=== PATIENT | female | born 1985 | race Caucasian/White ===

== ENCOUNTER 2021-10-01 06:37 | Day surgery (SDC) | payer OTHER ==
[~2021-10-01 06:37] MED LIST: Lactated Ringers 1,000 ML IV SCH; cefOXitin 2 GM in Premix Bag 1 BAG IV ONE
[2021-10-01] MEDS ORDERED: Bupivacaine 0.5% 30 ML SDV ONE (07:13)
[2021-10-01] MEDS ORDERED: ceFAZolin 1 GM Vial ONE (07:13)
[2021-10-01] MEDS ORDERED: Scopolamine 1.5 MG Transdermal Patch ONE (07:14)
[2021-10-01] MEDS ORDERED: Ondansetron 4 MG/2 ML SDV IVPUSH PRN (07:23)
[2021-10-01] MEDS ORDERED: Albuterol 0.083% 2.5 MG/3 ML Neb Soln NEB PRN (07:23)
[2021-10-01] MEDS ORDERED: Naloxone 0.4 MG/ML SDV IVPUSH PRN (07:23)
[2021-10-01] MEDS ORDERED: Metoclopramide 10 MG/2 ML SDV IVPUSH PRN (07:23)
[2021-10-01] MEDS ORDERED: Morphine 2 MG/ML SYRINGE IVPUSH PRN ×2 (07:23→08:47)
[2021-10-01] MEDS ORDERED: HYDROmorphone 1 MG/ML Syringe IVPUSH PRN (07:23)
--- NOTE | 2021-10-01 07:26 | PCM.PREANE ---
Preanesthetic Assessment - Anesthesia/Transfusion/Family Hx Anesthesia History: Prior Anesthesia Without Reaction Transfusion History: No Prior Transfusion(s) - Review of Systems General: No Symptoms Pulmonary: No Symptoms Cardiovascular: No Symptoms Gastrointestinal: No Symptoms Neurological: No Symptoms Other: Reports: None - Physical Assessment NPO Status Date: 10/01/21 NPO Status Time: 00:00 Vital Signs: Last Vital Signs Temp 97.7 F 10/01/21 06:49 Pulse 78 10/01/21 06:49 Resp 14 10/01/21 06:49 BP 104/57 L 10/01/21 06:49 Pulse Ox 99 10/01/21 06:49 Height: 5 ft 4 in Weight: 133 lb ASA Class: 2 Mental Status: Alert & Oriented x3 Airway Class: Mallampati = 2 Dentition: Reports: Normal Dentition Thyro-Mental Finger Breadths: 3 Mouth Opening Finger Breadths: 3 ROM/Head Extension: Full Lungs: Clear to Auscultation, Normal Respiratory Effort Cardiovascular: Regular Rate, Regular Rhythm - Allergies Allergies/Adverse Reactions: Allergies Allergy/AdvReac Type Severity Reaction Status Date / Time copper Allergy itch/swelli Verified 09/27/21 08:31 ng - Anesthesia Plan Pre-Op Medication Ordered: Other (scopolamnine) - Acknowledgements Anesthesia Type Planned: General Anesthesia Pt an Appropriate Candidate for the Planned Anesthesia: Yes Alternatives and Risks of Anesthesia Discussed w Pt/Guardian: Yes Pt/Guardian Understands and Agrees with Anesthesia Plan: Yes PreAnesthesia Questionnaire HEENT History: Reports: Allergic Rhinitis, Other (See Below) Other HEENT History: wears glasses/contacts Cardiovascular History: Reports: Other (See Below) Other Cardiovascular History: HTN in the past, not since weight loss Respiratory History: Reports: None Gastrointestinal History: Reports: Chronic Constipation, GERD Genitourinary History: Reports: None Musculoskeletal History: Reports: None Neurological History: Reports: Migraines Psychiatric History: Reports: Anxiety, Depression, PTSD Endocrine/Metabolic History: Reports: None Hematologic History: Reports: None Immunologic History: Reports: None Oncologic (Cancer) History: Reports: None Dermatologic History: Reports: None - Past Surgical History Head Surgeries/Procedures: Reports: None HEENT Surgical History: Reports: None Cardiovascular Surgical History: Reports: None Respiratory Surgical History: Reports: None GI Surgical History: Reports: Bariatric Procedure Other GI Surgeries/Procedures: joan-en y gastric bypass Female Surgical History: Reports: None Endocrine Surgical History: Reports: None Neurological Surgical History: Reports: None Musculoskeletal Surgical History: Reports: Other (See Below) Other Musculoskeletal Surgeries/Procedures:: right wrist surgery for avascular necrosis Oncologic Surgical History: Reports: None Dermatological Surgical History: Reports: None - SUBSTANCE USE Tobacco Use Status *Q: Former Tobacco User Tobacco Use Within Last Twelve Months: No - HOME MEDS Home Medications: Home Meds Bacillus Coagulans [Probiotic] 1 tab PO DAILY 09/27/21 [History] Biotin 10 mg PO DAILY 09/27/21 [History] Calcium Carbonate [Calcium] 1,250 mg PO DAILY 09/27/21 [History] Cholecalciferol (Vitamin D3) [Vitamin D3] 500 units PO DAILY 09/27/21 [History] Docusate Sodium [Colace] 100 mg PO QID 09/27/21 [History] Ferrous Gluconate 324 mg PO DAILY 09/27/21 [History] Loratadine [Claritin] 1 tab PO DAILY 09/27/21 [History] Multivitamin 1 tab PO DAILY 09/27/21 [History] Omeprazole 20 mg PO DAILY 09/27/21 [History] buPROPion HCL [Bupropion Xl] 450 mg PO DAILY 09/27/21 [History] polyethylene glycoL 3350 [MiraLAX] 1 scoop PO DAILY 09/27/21 [History] - CURRENT (IN HOUSE) MEDS Current Meds: Current Medications Albuterol (Albuterol 0.083% 2.5 Mg/3 Ml Neb Soln) 2.5 mg NEB ONETIME PRN PRN Reason: Wheezing Droperidol (Droperidol 5 Mg/2 Ml Sdv) 0.625 mg IVPUSH ONETIME PRN PRN Reason: Nausea/Vomiting Fentanyl (Fentanyl 100 Mcg/2 Ml Sdv) 50 mcg IVPUSH Q5M PRN PRN Reason: Pain (mild 1-3) Hydromorphone HCl (Hydromorphone 1 Mg/Ml Syringe) 1 mg IVPUSH Q10M PRN PRN Reason: Pain (moderate 4-6) Lactated Ringer's (Ringers, Lactated) 1,000 mls @ 125 mls/hr IV ASDIRECTED [facility] Last Admin: 10/01/21 06:54 Dose: 125 mls/hr Documented by: Metoclopramide HCl (Metoclopramide 10 Mg/2 Ml Sdv) 10 mg IVPUSH ONETIME PRN PRN Reason: Nausea/Vomiting Morphine Sulfate (Morphine 4 Mg/Ml Vial) 2 mg IVPUSH Q10M PRN PRN Reason: Pain (severe 7-10) Naloxone HCl (Naloxone 0.4 Mg/Ml Sdv) 0.1 mg IVPUSH ASDIRECTED PRN PRN Reason: Respiratory Depression Ondansetron HCl (Ondansetron 4 Mg/2 Ml Sdv) 4 mg IVPUSH ONETIME PRN PRN Reason: Nausea/Vomiting Discontinued Medications Bupivacaine HCl (Bupivacaine 0.5% 30 Ml Sdv) Confirm Administered Dose 30 ml .ROUTE .STK-MED ONE Stop: 10/01/21 07:14 Cefazolin Sodium (Cefazolin 1 Gm Vial) Confirm Administered Dose 1 gm .ROUTE .STK-MED ONE Stop: 10/01/21 07:14 Cefoxitin Sodium 2 gm/ Premix 50 mls @ 100 mls/hr IV ONETIME ONE Stop: 10/01/21 06:29 Scopolamine (Scopolamine 1.5 Mg Transdermal Patch) Confirm Administered Dose 1.5 mg .ROUTE .STK-MED ONE Stop: 10/01/21 07:15
[2021-10-01] MEDS ORDERED: cefOXitin 1 GM Vial ONE ×2 (07:55)
[2021-10-01] MEDS ORDERED: propofoL 100 ML ONE ×2 (08:07→08:08)
[2021-10-01] MEDS ORDERED: Indocyanine Green 25 MG SDV ONE (08:16)
[2021-10-01] MEDS ORDERED: Acetaminophen/HYDROcodone 325-5 MG Tab PO PRN (08:47)
--- NOTE | 2021-10-01 08:55 | PCM.OPNOTE ---
- General Post-Op/Procedure Note Date of Surgery/Procedure: 10/01/21 Operative Procedure(s): Laparoscopic cholecystectomy Pre Op Diagnosis: Symptomatic cholelithiasis Post-Op Diagnosis: Same Anesthesia Technique: General ET Tube (ASA II) Primary Surgeon: Mukund Martínez Marketing Project Lead: Cinthia Vidal Fluid Replacement, Intraop: 1,300 Output, Urine Amount: 50 EBL in mLs: 10 Condition: Good Free Text/Narrative:: DICTATION [id number] CPT CODE 44440
--- NOTE | 2021-10-01 08:58 | PCM48HPAN ---
Post Anesthesia Note - EVALUATION WITHIN 48HRS OF ANESTHETIC Vital Signs in Normal Range: Yes Patient Participated in Evaluation: Yes Respiratory Function Stable: Yes Airway Patent: Yes Cardiovascular Function Stable: Yes Hydration Status Stable: Yes Pain Control Satisfactory: Yes Nausea and Vomiting Control Satisfactory: Yes Mental Status Recovered: Yes Vital Signs: Last Vital Signs Temp 97.7 F 10/01/21 06:49 Pulse 78 10/01/21 06:49 Resp 14 10/01/21 06:49 BP 104/57 L 10/01/21 06:49 Pulse Ox 99 10/01/21 06:49
--- NOTE | 2021-10-01 08:58 | PCM.POSTAN ---
POST ANESTHESIA ASSESSMENT - MENTAL STATUS Mental Status: Alert, Oriented - VITAL SIGNS Vital Signs: Last Vital Signs Temp 97.7 F 10/01/21 06:49 Pulse 78 10/01/21 06:49 Resp 14 10/01/21 06:49 BP 104/57 L 10/01/21 06:49 Pulse Ox 99 10/01/21 06:49 - RESPIRATORY Respiratory Status: Respiratory Rate WNL, Airway Patent, O2 Saturation Stable - CARDIOVASCULAR CV Status: Pulse Rate WNL, Blood Pressure Stable - GASTROINTESTINAL GI Status: No Symptoms - POST OP HYDRATION Hydration Status: Adequate & Stable
[2021-10-01] MEDS ORDERED: Lactated Ringers 1,000 ML IV SCH (09:00)
[2021-10-01] MEDS: fentaNYL 100 MCG/2 ML SDV IVPUSH PRN ×2 (09:06→09:14)
--- NOTE | 2021-10-01 09:12 | OR ---
SURGEON: Mukund Martínez M.D. DATE OF PROCEDURE: 10/01/2021 OPERATION PERFORMED: Laparoscopic cholecystectomy. PRIMARY SURGEON: Mukund Martínez M.D. CATTLE BRANDER: [employer] Product Consultant: BRODERICK Jack first assist. ANESTHESIA: General endotracheal. ASA CLASSIFICATION: II. PREOPERATIVE DIAGNOSIS: Symptomatic cholelithiasis. POSTOPERATIVE DIAGNOSIS: Symptomatic cholelithiasis. ESTIMATED BLOOD LOSS: 10 mL. INTRAOPERATIVE FLUID REPLACEMENT: 1300 mL of crystalloid. INTRAOPERATIVE URINE OUTPUT: 50 mL. DESCRIPTION OF PROCEDURE: The patient was taken to the operating room and placed on the operating table in the supine position. Time-out was called for appropriate identification of the patient and procedure. Thigh-high TEDs and sequential compression boots were placed. Following satisfactory attainment of general endotracheal anesthesia, a Schroeder catheter was placed in the patient's urinary bladder. The abdomen was prepped with DuraPrep solution and sterile drapes were applied. The skin below the umbilicus was infiltrated with 0.5% Marcaine solution. Skin incision was made and hemostasis obtained with the use of electrocautery. The Veress needle was introduced into the peritoneal cavity. Saline drop test was positive. Carbon dioxide pneumoperitoneum was established with the release set at 13 mmHg. Under camera vision, 5 mm infraumbilical camera and port were placed. Appropriate sites had been marked on the abdominal wall for placement of our subxiphoid, midclavicular, and anterior axillary ports. With the patient positioned feet down and rolled to the left under camera vision, the 12 mm subxiphoid port was placed first, infiltrating the skin with 0.5% Marcaine solution prior to skin incision. The midclavicular incision was anesthetized with 0.5% Marcaine solution prior to skin incision, and once that was done, 5 mm port was also placed under direct vision. The anterior axillary incision was handled in the same fashion with pre-emptive 0.5% Marcaine solution followed by a direct replacement using the camera. The gallbladder was now grasped and the cholecystohepatic triangle was dissected free. She did have some adhesions and therefore indocyanine green was given to the patient. This allowed us to safely identify the cystic duct junction with the gallbladder and the common duct. Dissection was carried out along the cystic duct, which was mobilized. This was then ligated close to the gallbladder with hemoclips and then divided with the laparoscopic Metzenbaum scissor. The cystic artery was handled in a similar fashion having been mobilized and then hemoclipped proximally and distally before laparoscopic Metzenbaum scissor division. The gallbladder was then dissected away from its bed using electrocautery. No bile was spilled and no stones were spilled. There was minimal oozing from the gallbladder bed which was handled very nicely with the cautery. Once the gallbladder was amputated, this was placed in an Endopouch bag and subsequently retrieved after irrigating the gallbladder bed with saline and then irrigating the diaphragm with 250 mL of saline with 20 mL of 0.5% Marcaine solution. The 12 mm port and Endopouch containing gallbladder were removed. Again, under camera vision, the 5 mm midclavicular and anterior axillary incisions were removed and finally the infraumbilical camera and port were removed. Wounds were inspected for hemostasis and small bleeding sites were electrocoagulated. The subxiphoid and infraumbilical incisions were closed in 2 layers approximating the subcutaneous tissue with 3-0 Vicryl and the skin with subcuticular 4-0 Monocryl. The anterior axillary and midclavicular incisions were closed with subcuticular 4-0 Vicryl. All incisions were Steri-Stripped and dressed with sterile Tegaderm pads. Sponge, needle, and instrument counts were all correct. Prior to emergence from anesthesia, the Schroeder catheter was removed. Following emergence from anesthesia and extubation, the patient was taken to recovery room in stable condition. HERI / SHAYLEE /[id number]
== END 2021-10-01 11:07 | disposition home or self-care (01) ==
LOC: MW.SDS 06:37
PROVIDERS: ATTEND Surgery
DX: K81.1 Chronic cholecystitis (principal); K90.49 Malabsorption due to intolerance, not elsewhere classified; K21.9 Gastro-esophageal reflux disease without esophagitis; Z79.899 Other long term (current) drug therapy; Z98.84 Bariatric surgery status; Z98.890 Other specified postprocedural states; Z87.891 Personal history of nicotine dependence
CPT/HCPCS: 47562; 81025; J0131; J0694; J2704; J3010; J3490; J7030; J7120; 00790; J0690